=== PATIENT | male | born 1965 | race Caucasian/White ===

== ENCOUNTER → 2017-12-07 | Outpatient (REF) ==
[2017-12-07 17:11] LABS: THYROID STIMULATING HORMONE 1.98 uIU/mL (0.465-4.680)
[2017-12-07 18:10] LABS: PSA-TOTAL 2.17 ng/mL (0-4)
== END ==
LOC: ZLAB.WCH 16:05
PROVIDERS: Nurse Practitioner Family
DX: Z12.5 Encounter for screening for malignant neoplasm of prostate (principal)
CPT/HCPCS: G0103

== ENCOUNTER → 2017-12-14 | Outpatient (REF) | LOC: ZLAB.WCH 15:55 | DX: Z01.89 Encounter for other specified special examinations (principal) ==

== ENCOUNTER 2018-09-08 18:28 | Observation (INO) | payer BC ==
[2018-09-08] VITALS (9 sets, daily range): BP systolic 105–117; BP diastolic 62–84; PULSE 71–92; TEMP 98–98.3
[~2018-09-08] VITALS: Ht 175.3 cm; Wt 82.2 kg
[2018-09-08] MEDS ORDERED: CELEXA 20MG20 MG/TAB PO (19:14)
[2018-09-08] MEDS ORDERED: XANAX 0.5MG0.5 MG PO (19:15)
[2018-09-08] MEDS ORDERED: ZYRTEC5 MG PO (19:16)
[2018-09-08] MEDS ORDERED: MIRAPEX 0.0.125 MG/T PO (19:17)
--- NOTE | 2018-09-08 19:35 | NUR ---
Report from ARNULFO Pace. Patient was a direct admit from [facility] via personal vehicle. Admission B and assessment completed. Med-rec and allergies reviewed and entered. Patient is A&O x 4. VSS. Reports pain 4/10 to abdomen RLQ, denies needing any pain medication at this time. Pre-op checklist completed and on chart. and son are at bedside. Dr. Armas was just in to see patient and plan is for patient to go surgery this evening. IVF initiated per orders. Bed is in a low position with call light in reach.
--- NOTE | 2018-09-08 19:48 | NUR ---
Patient sent down to surgery with ARNULFO Harrison from PACU at this time.
--- NOTE | 2018-09-08 21:30 | NUR ---
Received patient from PACU at this time. Patient is drowsy, awakens to verbal stimuli. Post-op vitals initiated. Denies any pain at this time. Abdominal lap sites x 3 with swiftset. IVF infusing from PACU via gravity. Denies any concerns or needs at this time. Family is at bedside. Bed remains in a low position with call light in reach.
--- NOTE | 2018-09-08 22:55 | NUR ---
Patient is sitting up in bed visiting with family at bedside. Requesting a pain pill at this time as he reports he feels abdominal soreness and tugging at the incision sites, prn Gamaliel given along with an evening snack.
[2018-09-09 05:21] VITALS: BP 101/53; PULSE 61; TEMP 98
--- NOTE | 2018-09-09 05:51 | NUR ---
Patient has rested intermittently through the night. VSS. Reports minimal pain this morning, 1 tablet of [place] given last night. Abdominal lap sites x 3 with swiftset remain with edges well aproximated. Tolerating diet with no c/o nausea. Reoprts passing gas. Voiding with no difficulities. INT with good PO intake. has remained at bedside. Voices no concerns or needs this morning.
[2018-09-09 07:30] VITALS: BP 92/58; PULSE 65; TEMP 98.1
--- NOTE | 2018-09-09 08:07 | NUR ---
shift report received from ARNULFO Galvez
--- NOTE | 2018-09-09 08:20 | NUR ---
resting in bed, full assessment completed, see interventions for further info, breakfast is here
[2018-09-09] MEDS ORDERED: NORCO 325 MG-51 TAB PO (09:33)
[2018-09-09] MEDS ORDERED: LEVAQUIN 5500 MG/TA1 PO (09:33)
--- NOTE | 2018-09-09 09:50 | NUR ---
appears to be sleeping, awakened and states pain pill has helped his pain, is ready to go home, will get up and get dressed for discharge
--- NOTE | 2018-09-09 10:15 | NUR ---
discharge instructions given to patient and his , verbalizes understanding
--- NOTE | 2018-09-09 10:20 | NUR ---
discharged per WC
--- NOTE | 2018-09-09 10:26 | NUR ---
Initial visit; Patient and his thanked Event Marketing Intern for looking in on Bill and offering God's blessings. Patient states that his Electrical Continuity Inspector offered support and comfort for him and his earlier.
== END 2018-09-09 10:20 | disposition home or self-care (01) ==
LOC: JCC 18:28
PROVIDERS: ADMIT Surgery
DX: K35.80 Unspecified acute appendicitis (principal); F32.9 Major depressive disorder, single episode, unspecified
CPT/HCPCS: G0378; G0379; J1100; J1885; J2175; J2405; J2543; J2704; J7120

== ENCOUNTER 2020-09-09 10:53 | Inpatient (IN) | payer BC ==
[~2020-09-09] VITALS: Ht 175.3 cm; Wt 90.7 kg
[~2020-09-09 10:53] MED LIST: CELEXA 20MG20 MG/TAB PO; LEVAQUIN 5500 MG/TA1 PO; MIRAPEX 0.0.125 MG/T PO; NORCO 325 MG-51 TAB PO; XANAX 0.5MG0.5 MG PO; ZYRTEC5 MG PO
[2020-09-09] MEDS ORDERED: PREDNISONE20 MG PO (11:57)
[2020-09-09] MEDS ORDERED: ZOCOR 20MG20 MG PO (11:59)
[2020-09-09] MEDS ORDERED: DOXYCYCLINE 10100 MG PO (11:59)
[2020-09-09 12:00] LABS: INR 1.1 (0.8-3.0)
[2020-09-09] MEDS ORDERED: VITAMIND3 5000 PO (12:00)
[2020-09-09] MEDS ORDERED: ZYRTEC 10MG10 MG PO (12:01)
[2020-09-09 12:02] LABS: GRAN # 5.5 (1.4-6.5); GRAN % 76.5 % (42.2-75.2); HEMATOCRIT 42.2 % (42.0-52.0); HEMOGLOBIN 14.5 g/dl (13.5-18.0); LYMPH # 1.3 (1.2-3.4); LYMPH % 17.8 % (20.0-51.0); MEAN CELL VOLUME 91 fl (80.0-100.0); MEAN CORPUSCULAR HEMOGLOBIN 31 pg (27.0-31.0); MEAN CORPUSCULAR HGB CONC 34 g/dl (33.0-37.0); MEAN PLATELET VOLUME 10.5 fl (7.4-10.4); MONO # 0.4 (0.1-0.6); MONO % 5.4 % (1.7-9.3); PLATELET COUNT 167 K/mm3 (130-400); RED BLOOD COUNT 4.65 M/mm3 (4.20-5.60)
[2020-09-09 12:03] LABS: PARTIAL THROMBOPLASTIN TIME 21.4 SECONDS (26.0-37.0)
[2020-09-09 12:10] LABS: ALANINE AMINOTRANSFERASE 27 U/L (4-49); ALBUMIN 4.2 gm/dL (3.5-5.0); ALKALINE PHOSPHATASE 72 U/L (50-136); ANION GAP 9 mmol/L (7-16); AST,SGOT 27 U/L (15-37); BILIRUBIN,TOTAL 0.4 mg/dL (0.0-1.0); BLOOD UREA NITROGEN 22 mg/dL (9-20); CALCIUM 8.9 mg/dL (8.4-10.2); CARBON DIOXIDE 28 mmol/L (22-30); CHLORIDE 101 mmol/L (98-107); CREATININE, serum 1.06 (0.66-1.25); GLUCOSE 100 mg/dL (74-106); LIPASE 13 U/L (23-300); SODIUM 138 mmol/L (137-145); TOTAL PROTEIN 7.4 gm/dL (6.4-8.2)
[2020-09-09 12:23] LABS: TROPONIN-I < 0.012 ng/mL (0.000-0.035)
[2020-09-09 12:25] LABS: PROLACTIN 10.4 ng/mL (3.7-17.9)
--- NOTE | 2020-09-09 15:48 | NUR ---
PT IN ROOM, SATTING 85% WHEN BROUGHT UP FROM ER. GRADUALLY TURNED UP TO 10L HIGH FLOW NASAL CANNULA. NOW SATTING 92%. PT REPORTS BEING EXHAUSTED AND SLEEPING 18-20HOURS A DAY AT HOME. HELPED GET PERSONAL BELONGINGS WITHIN REACH FOR PT, PT AOX4 BUT DROWSY, WATER IN ROOM SHOWED HOW TO USE CALL LIGHT AND PHONE.
[2020-09-09] MEDS ORDERED: MUCINEX DM 30 M1 TE1 (15:59)
[2020-09-09 16:10] VITALS: BP 103/74; PULSE 70; TEMP 99.1
--- NOTE | 2020-09-09 18:03 | NUR ---
PT CURRENTLY AT 6L NC SATTING 90%. PT VERY DROWSY IN ROOM, URINAL AT BEDSIDE SO PT DOES NOT HAVE TO GET UP, MAINTENANCE FLUIDS HANGING, CALL LIGHT WITHIN REACH, PT AOX4, PT GAVE PERMISSION TO UPDATE ABOUT ANY HEALTH QUESTIONS/UPDATES. PT PLEASANT OVERALL, NO OTHER NEEDS AT THIS TIME.
[2020-09-09 21:45] VITALS: BP 107/67; PULSE 69; TEMP 97.8
--- NOTE | 2020-09-09 23:49 | NUR ---
individual denied pain and or discomfort. VSS No s/s of distress noted.
[2020-09-09 23:59] VITALS: BP 102/58; PULSE 66; TEMP 97.8
[2020-09-10] VITALS (460 sets, daily range): BP systolic 95–129; BP diastolic 58–79; PULSE 65–91; TEMP 98.3–100; O2SAT 83–100
[2020-09-10 05:45] LABS: ARTERIAL BLD GAS O2 SATURATION 92.6 % (92-100); ARTERIAL BLD GAS TCO2 CT 26.2; ARTERIAL BLOOD GAS BASE EXCESS 1.4 (-2-2); ARTERIAL BLOOD GAS HCO3 25.1 meq/L (22-26); ARTERIAL BLOOD GAS PCO2 36.6 mmHg (35-45); ARTERIAL BLOOD GAS PO2 61.8 mmHg (80-100); ARTERIAL BLOOD GAS pH 7.45 (7.35-7.45)
--- NOTE | 2020-09-10 06:36 | NUR ---
individual noted SOB and c/o chills. 02 @ 3-4L via HF, Sat in 80"s. Increased to 10 then 15L and could not get above 89-90%. Resp and ALP notified. Placed on bi-pap and will be transfered to ICU and CT.
--- NOTE | 2020-09-10 06:50 | NUR ---
received report, checked on pt, bipap on, pulse-ox showing 92%. called ct of stat chest ct for pe, RT notified of need to go down with RT assistance.
[2020-09-10 07:00] LABS: EOS % 0.1 % (0-4.0); GRAN # 6.1 (1.4-6.5); GRAN % 77.8 % (42.2-75.2); HEMATOCRIT 38.7 % (42.0-52.0); HEMOGLOBIN 13.4 g/dl (13.5-18.0); LYMPH # 1.3 (1.2-3.4); LYMPH % 16.6 % (20.0-51.0); MEAN CELL VOLUME 91 fl (80.0-100.0); MEAN CORPUSCULAR HEMOGLOBIN 32 pg (27.0-31.0); MEAN CORPUSCULAR HGB CONC 35 g/dl (33.0-37.0); MEAN PLATELET VOLUME 10.5 fl (7.4-10.4); MONO # 0.4 (0.1-0.6); MONO % 5.1 % (1.7-9.3); PLATELET COUNT 173 K/mm3 (130-400); RED BLOOD COUNT 4.24 M/mm3 (4.20-5.60); REDCELL DISTRIBUTION WIDTH-CV 13.1 % (11.5-14.5)
[2020-09-10 07:01] LABS: ALBUMIN 3.8 gm/dL (3.5-5.0); BILIRUBIN,TOTAL 0.5 mg/dL (0.0-1.0); CALCIUM 8.8 mg/dL (8.4-10.2); CREATININE, serum 0.94 (0.66-1.25); POTASSIUM 4.3 mmol/L (3.4-5.0); TOTAL PROTEIN 6.7 gm/dL (6.4-8.2)
--- NOTE | 2020-09-10 07:57 | NUR ---
PT TAKEN DOWN TO CT, TRANSFERRED TO ICU BED [address] REPORT GIVEN TO ARNULFO JC.
[2020-09-11] VITALS (706 sets, daily range): BP systolic 98–134; BP diastolic 63–81; PULSE 55–80; TEMP 98.3–99; O2SAT 75–100
[2020-09-11 05:42] LABS: GRAN # 5.9 (1.4-6.5); GRAN % 76.9 % (42.2-75.2); HEMOGLOBIN 12.3 g/dl (13.5-18.0); LYMPH # 1.3 (1.2-3.4); LYMPH % 16.4 % (20.0-51.0); MEAN CELL VOLUME 90 fl (80.0-100.0); MEAN CORPUSCULAR HEMOGLOBIN 31 pg (27.0-31.0); MEAN CORPUSCULAR HGB CONC 34 g/dl (33.0-37.0); MONO # 0.5 (0.1-0.6); PLATELET COUNT 153 K/mm3 (130-400); RED BLOOD COUNT 4.01 M/mm3 (4.20-5.60); REDCELL DISTRIBUTION WIDTH-CV 12.9 % (11.5-14.5)
[2020-09-11 05:47] LABS: ARTERIAL BLD GAS O2 SATURATION 96.8 % (92-100); ARTERIAL BLD GAS TCO2 CT 22.8; ARTERIAL BLOOD GAS BASE EXCESS -1.5 (-2-2); ARTERIAL BLOOD GAS HCO3 21.8 meq/L (22-26); ARTERIAL BLOOD GAS PCO2 32.4 mmHg (35-45); ARTERIAL BLOOD GAS PO2 88.3 mmHg (80-100); ARTERIAL BLOOD GAS pH 7.45 (7.35-7.45)
[2020-09-11 05:57] LABS: ALBUMIN 3.4 gm/dL (3.5-5.0); BILIRUBIN,TOTAL 0.4 mg/dL (0.0-1.0); CALCIUM 8.2 mg/dL (8.4-10.2); CREATININE, serum 0.89 (0.66-1.25); TOTAL PROTEIN 6.3 gm/dL (6.4-8.2)
--- NOTE | 2020-09-11 11:50 | NUR ---
Wel[employer] attempted to contact patient by personal phone with no answer. SW then contacted patient's , Lorelei (ph#[phone]) to discuss discharge planning. Lorelei advised that she and patient live in [place] and patient is employed by [employer]. Patient sees LYNDA Tabares in [place] for primary care and obtains medications from [email or web address] with no difficulties. Patient uses a CPAP and no other DME. Patient is normally independent with ADLS. Lorelei advised patient has DPOA-HC but SW did not locate copy in EMR. RACHID requested Lorelei fax over a copy to the ICU and Lorelei states she will try to get that over today. RACHID will continue to follow.
[2020-09-12] VITALS (612 sets, daily range): BP systolic 113–132; BP diastolic 71–89; PULSE 57–70; TEMP 97.6–98.3; O2SAT 73–100
--- NOTE | 2020-09-12 02:26 | NUR ---
PT resting well. No desaturations noted on the BiPap. Patient would occasionally desat on HFNC when coughing and eating. PT noted SOA with activity but was able to pace activities and catch up on his breathing. Will continue to monitor and educate.
[2020-09-12 05:52] LABS: BASO % 0.1 % (0.0-2.0); GRAN # 5.2 (1.4-6.5); GRAN % 74.5 % (42.2-75.2); HEMOGLOBIN 11.9 g/dl (13.5-18.0); LYMPH # 1.3 (1.2-3.4); LYMPH % 17.9 % (20.0-51.0); MEAN CELL VOLUME 89 fl (80.0-100.0); MEAN CORPUSCULAR HEMOGLOBIN 31 pg (27.0-31.0); MEAN CORPUSCULAR HGB CONC 34 g/dl (33.0-37.0); MONO # 0.5 (0.1-0.6); MONO % 6.9 % (1.7-9.3); PLATELET COUNT 181 K/mm3 (130-400); REDCELL DISTRIBUTION WIDTH-CV 12.7 % (11.5-14.5)
[2020-09-12 05:55] LABS: HEMATOCRIT 34.8 % (42.0-52.0)
[2020-09-12 06:06] LABS: ALBUMIN 3.2 gm/dL (3.5-5.0); BILIRUBIN,TOTAL 0.4 mg/dL (0.0-1.0); CALCIUM 8.3 mg/dL (8.4-10.2); CREATININE, serum 0.83 (0.66-1.25); POTASSIUM 3.8 mmol/L (3.4-5.0); TOTAL PROTEIN 5.9 gm/dL (6.4-8.2)
--- NOTE | 2020-09-12 13:47 | NUR ---
Dr. Valdes called. updates given
--- NOTE | 2020-09-12 14:38 | NUR ---
Reformatory Attendant contacted patient's , Lorelei to follow up on DPOA-HC documents. Lorelei states she is in isolation herself for COVID and faxing the paperwork is not a priority for her right now. RACHID inquired if these documents were drawn up at an employee benefits attorney's office. Lorelei asked SW why it was so important to have a copy. RACHID advised Lorelei that if patient has designated someone as DPOA-HC we are required to have a copy so that if the occasion arises that patient is unable to make his own medical decisions, we have documentation of who is the legal decision maker. Lorelei states she would be the decision maker and that she is not comfortable providing the name of the employee benefits attorney and did not want SW to call to request a copy. RACHID will continue to follow.
--- NOTE | 2020-09-12 16:14 | NUR ---
ED screener called and advised that patient's daughter dropped of a copy of patient's DPOA- paperwork. Patient's also left SW a message and said she made a copy and would have daughter bring it in. RACHID placed copy on patient's chart. Lorelei is DPOA-.
--- NOTE | 2020-09-12 23:00 | NUR ---
PT SLEEPING WELL ON AIRVO WITH SATURATIONS IN THE HIGH 90'S. DISCUSSED WITH PT TO SLEEP ON STOMACH. THIS WOULD BE EASIER TO DO WITH THE AIRVO ON INSTEAD OF THE BIPAP WITH THE MASK. NO DISTRESS NOTED AT THIS TIME. WILL CONTINUE TO WATCH AND ASSESS PT AND PLACE ON BIPAP IF SATURATIONS DROP. HOWEVER AT THIS TIME IT IS NOT NEEDED.
[2020-09-13] VITALS (344 sets, daily range): BP systolic 102–122; BP diastolic 60–84; PULSE 49–78; TEMP 97.6–97.8; O2SAT 86–100
[2020-09-13 05:23] LABS: BASO % 0.1 % (0.0-2.0); EOS % 0.1 % (0-4.0); GRAN # 5.7 (1.4-6.5); HEMOGLOBIN 12.6 g/dl (13.5-18.0); LYMPH # 1.3 (1.2-3.4); LYMPH % 16.8 % (20.0-51.0); MEAN CELL VOLUME 89 fl (80.0-100.0); MEAN CORPUSCULAR HEMOGLOBIN 31 pg (27.0-31.0); MEAN CORPUSCULAR HGB CONC 35 g/dl (33.0-37.0); MEAN PLATELET VOLUME 9.9 fl (7.4-10.4); MONO # 0.5 (0.1-0.6); MONO % 6.9 % (1.7-9.3); PLATELET COUNT 207 K/mm3 (130-400); RED BLOOD COUNT 4.04 M/mm3 (4.20-5.60); REDCELL DISTRIBUTION WIDTH-CV 12.5 % (11.5-14.5)
[2020-09-13 05:32] LABS: CALCIUM 8.4 mg/dL (8.4-10.2); CREATININE, serum 0.83 (0.66-1.25); POTASSIUM 3.9 mmol/L (3.4-5.0)
--- NOTE | 2020-09-13 14:12 | NUR ---
Patient to transfer to the floor. SW collaborated with Hospitalist and requested PT/OT orders. SW will continue to follow.
--- NOTE | 2020-09-13 16:30 | NUR ---
Pt transferred to 303 from ICU via WC with O2 via Non-rebreather mask, sats 92% upon change back to Airvo when in room. Pt tolerated transfer well AEB no signs of dyspnea. PICC line to right upper arm with Abx infusion restarted, no s/s of complications. POC reviewed with pt. No needs reported. Call light in reach.
--- NOTE | 2020-09-13 18:15 | NUR ---
IV abx complete. Line disconnected and flushed with NS. Pt up to bathroom, Airvo does reach to bathroom without any complications. Pt denies any further needs. Call light in reach.
--- NOTE | 2020-09-13 19:11 | NUR ---
Report given to ARNULFO Byrne.
--- NOTE | 2020-09-13 20:00 | NUR ---
Assessment complete. Patient is wearing airvo at 50 liters and appears comfortable with no SOA. He has no complaints of pain. Lungs sound clear. PRN robitussin is adminstered per patient request. No new concerns, call light in reach, will continue to monitor.
[2020-09-14 01:29] VITALS: BP 110/60; PULSE 60; TEMP 98
[2020-09-14 03:06] VITALS: BP 110/70; PULSE 60; TEMP 97.8
--- NOTE | 2020-09-14 04:25 | NUR ---
Patient has slept throughout the night with no complaints. He has worn 50 liters airvo all night with no complications. Call light in reach, will continue to monitor.
[2020-09-14 07:11] LABS: HEMOGLOBIN 12.8 g/dl (13.5-18.0); MEAN CELL VOLUME 90 fl (80.0-100.0); MEAN CORPUSCULAR HEMOGLOBIN 31 pg (27.0-31.0); MEAN CORPUSCULAR HGB CONC 35 g/dl (33.0-37.0); MEAN PLATELET VOLUME 10.1 fl (7.4-10.4); PLATELET COUNT 233 K/mm3 (130-400); RED BLOOD COUNT 4.12 M/mm3 (4.20-5.60); REDCELL DISTRIBUTION WIDTH-CV 12.6 % (11.5-14.5)
[2020-09-14 07:16] LABS: ALBUMIN 3.3 gm/dL (3.5-5.0); BILIRUBIN,TOTAL 0.5 mg/dL (0.0-1.0); CALCIUM 8.7 mg/dL (8.4-10.2); CREATININE, serum 0.81 (0.66-1.25); POTASSIUM 3.6 mmol/L (3.4-5.0); TOTAL PROTEIN 6.2 gm/dL (6.4-8.2)
[2020-09-14 07:24] LABS: HEMATOCRIT 36.9 % (42.0-52.0)
[2020-09-14 08:19] LABS: BAND 1 % (0-10); EOSINOPHIL 1 % (0-4); NEUTROPHILS 73 % (42.0-75.2); PLATELET ESTIMATE NORMAL (NORMAL)
[2020-09-14 08:20] LABS: LYMPHOCYTE 17 % (20.0-51.0)
[2020-09-14 08:56] VITALS: BP 124/62; PULSE 63; TEMP 97.9
--- NOTE | 2020-09-14 11:09 | NUR ---
MORNING MEDS GIVEN. PT AOX4. steady independent ambulation albeit winded with activity. therapy in session at this time. denied pain. reports soft formed BM this morning. denies chest pain, N/V, ROLLINS or diarrhea. reports occasional pain to chest cavity due to strong cough and PNA. called and updated. remains on Airvo 50L. lungs diminished bases R>L. HRRR. call light within reach. no other needs at this time
[2020-09-14 12:22] VITALS: BP 108/74; PULSE 61; TEMP 97.8
--- NOTE | 2020-09-14 15:45 | NUR ---
Oil Rig Driller staffed with Hospitalist regarding discharge disposition. Hospitalist is recommending [facility]. SW contacted the patient's Lorelei to discuss this recommendation. Lorelei asked that the nurse or physician provide and update to her. Lorelei was agreeable to sending referrals to LTACH. RACHID faxed referrals to [facility] and to [facility]. RACHID collaborated the above information with the team.
[2020-09-14 16:12] VITALS: BP 101/658; PULSE 69; TEMP 97.7
[2020-09-14 19:14] VITALS: BP 118/64; PULSE 66; TEMP 97.4
[2020-09-15] VITALS (7 sets, daily range): BP systolic 97–123; BP diastolic 52–81; PULSE 52–83; TEMP 97.6–98.5
--- NOTE | 2020-09-15 04:39 | NUR ---
PT HAS HAD AN UNEVENTFUL NIGHT. RESTED WELL, NO C/O PAIN OR DISCOMFORT. NO CONCERNS.
[2020-09-15 07:07] LABS: BASO % 0.1 % (0.0-2.0); EOS % 0.3 % (0-4.0); GRAN % 75.8 % (42.2-75.2); HEMOGLOBIN 12.3 g/dl (13.5-18.0); LYMPH # 1.5 (1.2-3.4); LYMPH % 16.3 % (20.0-51.0); MEAN CELL VOLUME 91 fl (80.0-100.0); MEAN CORPUSCULAR HEMOGLOBIN 31 pg (27.0-31.0); MEAN CORPUSCULAR HGB CONC 35 g/dl (33.0-37.0); MEAN PLATELET VOLUME 10.1 fl (7.4-10.4); MONO # 0.6 (0.1-0.6); MONO % 6.4 % (1.7-9.3); PLATELET COUNT 216 K/mm3 (130-400); RED BLOOD COUNT 3.93 M/mm3 (4.20-5.60); REDCELL DISTRIBUTION WIDTH-CV 12.6 % (11.5-14.5)
[2020-09-15 07:09] LABS: HEMATOCRIT 35.6 % (42.0-52.0)
[2020-09-15 07:35] LABS: CALCIUM 8.5 mg/dL (8.4-10.2); CREATININE, serum 0.81 (0.66-1.25); POTASSIUM 3.9 mmol/L (3.4-5.0)
--- NOTE | 2020-09-15 07:44 | NUR ---
sHIFT REPORT RECEIVED. PT resting in bed. denied any needs at this time
--- NOTE | 2020-09-15 10:07 | NUR ---
MORNING MEDS GIVEN. PT AOX4. denies pain. reports dry cough. prn guafenesin given. PICC to RUE double lumen easy flush and draw back. remains on Airvo. pt reports feeling better. lung sounds diminished with some clear. no edema. HRRR. no new concerns
--- NOTE | 2020-09-15 15:56 | NUR ---
pt's Lorelei called and updated about pt's progress and plan of care. She stated she discussed with case management about possible discharge to LTAC/SNF for oxygen needs in near future. informed about plan to initiate Bipap at night and Airvo in AM and attempts to lower supplemental oxygen needs. She stated she is aware of chest Xray results based on pt's conversation with Dr García. Multiple questions answered. PT AOX4 and able to make needs known.
[2020-09-16 03:39] VITALS: BP 98/60; PULSE 57; TEMP 98.2
--- NOTE | 2020-09-16 08:34 | NUR ---
SHIFT report received and pt seen shorlty after. denies pain. resting in bed awake. reports feeling phlegm loosen but cough remains dry. Airvo running. No other concerns at this time
[2020-09-16 08:49] VITALS: BP 103/58; PULSE 63; TEMP 98.5
--- NOTE | 2020-09-16 08:56 | NUR ---
MORNING MEDS GIVEN. PT AOX4, denies pain. Airvo @ 50L 86%. VSS axs charted. reports regular daily BMs. denies nausea. ate 100% breakfast. no new concerns. lungs diminished bases with upper lobes clear. call light within reach
[2020-09-16 09:20] LABS: BASO % 0.1 % (0.0-2.0); EOS # 0.1 (0.0-0.7); EOS % 0.7 % (0-4.0); GRAN # 9.2 (1.4-6.5); GRAN % 77.6 % (42.2-75.2); HEMATOCRIT 38.2 % (42.0-52.0); HEMOGLOBIN 13.2 g/dl (13.5-18.0); LYMPH # 1.8 (1.2-3.4); LYMPH % 15.3 % (20.0-51.0); MEAN CELL VOLUME 90 fl (80.0-100.0); MEAN CORPUSCULAR HEMOGLOBIN 31 pg (27.0-31.0); MEAN CORPUSCULAR HGB CONC 35 g/dl (33.0-37.0); MEAN PLATELET VOLUME 9.5 fl (7.4-10.4); MONO # 0.6 (0.1-0.6); PLATELET COUNT 241 K/mm3 (130-400); RED BLOOD COUNT 4.27 M/mm3 (4.20-5.60); REDCELL DISTRIBUTION WIDTH-CV 12.8 % (11.5-14.5)
[2020-09-16 09:30] LABS: ALBUMIN 3.6 gm/dL (3.5-5.0); BILIRUBIN,TOTAL 0.6 mg/dL (0.0-1.0); CREATININE, serum 0.98 (0.66-1.25); POTASSIUM 3.8 mmol/L (3.4-5.0); TOTAL PROTEIN 6.5 gm/dL (6.4-8.2)
[2020-09-16 11:09] VITALS: BP 110/62; PULSE 67; TEMP 97.7
[2020-09-16 16:00] VITALS: BP 106/75; PULSE 79; TEMP 98.1
[2020-09-16 19:30] VITALS: BP 110/70; PULSE 68; TEMP 98.3
[2020-09-16 23:44] VITALS: BP 110/76; PULSE 53; TEMP 97.7
[2020-09-17 04:40] VITALS: BP 102/70; PULSE 51; TEMP 97.5
[2020-09-17 07:43] VITALS: BP 103/69; PULSE 58; TEMP 98.2
--- NOTE | 2020-09-17 07:43 | NUR ---
SHIFT REPORT recveived. PT AOX4. resting in chair. denies pain. RT in room and titrated pt to 45L 66% airvo. no new concerns at this time
--- NOTE | 2020-09-17 09:41 | NUR ---
[employer] faxed updates to Merritt with [facility].
[2020-09-17 12:46] VITALS: BP 115/73; PULSE 61; TEMP 98.2
[2020-09-17 16:30] VITALS: BP 117/73; PULSE 67; TEMP 97.6
--- NOTE | 2020-09-17 16:53 | NUR ---
PT REPORTS FEELING MILDLY LABORED IN BREATHING. able to tolerate. airvo titrated to 45L 50%. O2 sat 96%. pt denies SOB even with activity.
[2020-09-17 20:12] VITALS: BP 113/72; PULSE 67; TEMP 97.8
[2020-09-18 00:15] VITALS: BP 116/70; PULSE 68; TEMP 97.7
[2020-09-18 05:28] VITALS: BP 101/69; PULSE 61; TEMP 97.9
[2020-09-18 10:03] VITALS: BP 115/78; PULSE 76; TEMP 98.1
--- NOTE | 2020-09-18 10:23 | NUR ---
The patient has is not down to 10L of oxygen and he is ready for discharge. Merritt with [facility] reports the patient is next on the list and once a bed is available he will be able to be transferred. RACHID contacted Stephani BELL with [facility]. RACHID left her a message regarding the above information.
--- NOTE | 2020-09-18 10:41 | NUR ---
Assessment completed, alert/oriented, vital sign stable, denies pain or discomfort, reports overall feeling better, lungs diminished with some LLL fine crackles, Airvo setting decreased to 40/52 and will attempt to put on nasal cannula later today, heart RRR/distal pulses are palpable, he is sitting up in his chair eating breakfast and denies otehr needs at thistime
[2020-09-18 16:00] VITALS: BP 122/82; PULSE 66; TEMP 98.2
--- NOTE | 2020-09-18 19:30 | NUR ---
Patient assessed at this time. Alert and oriented x 4, and able to make needs known. Denies having pain and discomfort at this time. Double lumen PICC to RUE. Denies SOB and dyspnea. On oxygen at 8 L/min via high flow NC. LS CTA in upper lobes, diminished in lower. Respirations even and unlabored. HRR. Telemetry in place. Capillary refill less than 3 seconds. Non-tenting skin turgor. BSAx4. Abdomen soft and non-tender. No edema. Voices no questions, needs, or concerns at this time. Resting in bed with call light within reach.
[2020-09-18 19:49] VITALS: BP 118/73; PULSE 71; TEMP 97.9
--- NOTE | 2020-09-18 20:20 | NUR ---
Patient given PRN Xanax as requested for anxiety at this time.
[2020-09-19 11:58] LABS: CALCIUM 8.8 mg/dL (8.4-10.2); CREATININE, serum 0.85 (0.66-1.25); POTASSIUM 4.1 mmol/L (3.4-5.0)
[2020-09-19 11:59] VITALS: BP 134/74; PULSE 42; TEMP 98.3
[2020-09-19 12:33] LABS: BASO % 0.2 % (0.0-2.0); EOS # 0.1 (0.0-0.7); EOS % 0.5 % (0-4.0); GRAN # 8.4 (1.4-6.5); GRAN % 71.1 % (42.2-75.2); HEMATOCRIT 36.5 % (42.0-52.0); HEMOGLOBIN 12.5 g/dl (13.5-18.0); LYMPH # 2.4 (1.2-3.4); LYMPH % 20.7 % (20.0-51.0); MEAN CELL VOLUME 91 fl (80.0-100.0); MEAN CORPUSCULAR HEMOGLOBIN 31 pg (27.0-31.0); MEAN CORPUSCULAR HGB CONC 34 g/dl (33.0-37.0); MEAN PLATELET VOLUME 10.4 fl (7.4-10.4); MONO # 0.8 (0.1-0.6); MONO % 6.4 % (1.7-9.3); PLATELET COUNT 202 K/mm3 (130-400); RED BLOOD COUNT 4.03 M/mm3 (4.20-5.60); REDCELL DISTRIBUTION WIDTH-CV 12.9 % (11.5-14.5)
--- NOTE | 2020-09-19 15:29 | NUR ---
The patient is now on 3L of oxygen and independent in his room. SW attempted to contact the patient via room phone to follow up with the discharge plan, no answer. RACHID contacted the patient's Lorelei to revisit the discharge plan. The plan is for the patient to return home. If the patient will be needing oxygen, [employer] is the company Lorelei would like to use. RACHID staffed with the patient's nurse regarding the patient's plans for discharge. Nurse reports the patient plans to return home when able.
--- NOTE | 2020-09-19 15:53 | NUR ---
PATIENT ON ROOM AIR SPO2 89% WALKING, SUGGEST EX OX IN AM. PATIENT BACK ON 2LPM FOR TONIGHT.
[2020-09-19 16:30] VITALS: BP 125/82; PULSE 73
--- NOTE | 2020-09-19 19:35 | NUR ---
Patient assessed at this time. Alert and oriented x 4, and able to make needs known. Denies having pain and discomfort at this time. Double lumen PICC to RUE flushed. Site without redness, warmth, swelling, and pain. Dressing CDI. Denies having SOB and dyspnea. On oxygen at 2 L/min via NC. LS CTA. Respirations even and unlabored. HRR. Telemetry in place. Capillary refill less than 3 seconds. Non-tenting skin turgor. BSAx4. Abdomen soft and non-tender. No edema. Voices no questions, needs, or concerns at this time. Resting in recliner with call light within reach.
[2020-09-19 20:12] VITALS: BP 109/81; PULSE 77; TEMP 97.8
[2020-09-19 23:22] VITALS: BP 97/71; PULSE 116; TEMP 97.7
[2020-09-20 03:55] VITALS: BP 106/67; PULSE 62; TEMP 97.4
--- NOTE | 2020-09-20 04:12 | NUR ---
Patient given PRN APAP as requested for headache at this time. Voices no further questions, needs, or concerns at this time. Resting in bed with call light within reach.
--- NOTE | 2020-09-20 05:09 | NUR ---
Patient has been resting in bed with call light within reach. Continues on oxygen at 2 L/min via NC. Denies having SOB and dyspnea. Received PRN APAP once for headache this shift. Voices no further questions, needs, or concerns at this time.
[2020-09-20 07:36] LABS: BASO % 0.2 % (0.0-2.0); EOS % 0.2 % (0-4.0); GRAN # 9.6 (1.4-6.5); GRAN % 72.4 % (42.2-75.2); HEMATOCRIT 38.1 % (42.0-52.0); HEMOGLOBIN 13.3 g/dl (13.5-18.0); LYMPH # 2.8 (1.2-3.4); LYMPH % 21.1 % (20.0-51.0); MEAN CELL VOLUME 90 fl (80.0-100.0); MEAN CORPUSCULAR HEMOGLOBIN 31 pg (27.0-31.0); MEAN CORPUSCULAR HGB CONC 35 g/dl (33.0-37.0); MEAN PLATELET VOLUME 10.6 fl (7.4-10.4); MONO # 0.7 (0.1-0.6); MONO % 5.3 % (1.7-9.3); PLATELET COUNT 210 K/mm3 (130-400); RED BLOOD COUNT 4.23 M/mm3 (4.20-5.60)
[2020-09-20 07:40] LABS: CALCIUM 9.2 mg/dL (8.4-10.2); CREATININE, serum 0.93 (0.66-1.25); POTASSIUM 4.2 mmol/L (3.4-5.0)
[2020-09-20 08:03] VITALS: BP 122/77; PULSE 68; TEMP 97.7
--- NOTE | 2020-09-20 08:15 | NUR ---
Patient sitting up in bed watching TV. A&Ox4. VSS 2L NC O2. No reported SOB. IV CDI. Patient states that he is feeling better and is hoping to go home today. No further needs expressed from the patient. Call light within reach
[2020-09-20] MEDS ORDERED: PROAIR HFA0.09 MG/AC IH (10:42)
[2020-09-20] MEDS ORDERED: OXYGEN NASAL.CANN (10:43)
--- NOTE | 2020-09-20 11:06 | NUR ---
The patient is to discharge home today, 09/20 with family support. The patient qualified for oxygen. RACHID faxed order to [employer]. Carlos from [employer] states there will be a co-pay of around $385 a month. RACHID contacted the patient and regarding co-pay. They were agreeable. Delivery will be in-between 12 and 1 this day. RACHID collaborated the above information with the patient's nurse. No other needs.
--- NOTE | 2020-09-20 12:52 | NUR ---
Discharge paperwork reviewed with the patient. Patient verbalized an understanding to follow doctors orders. Portable oxygen tank with the patient. No further needs expressed from the patient. Patient independent in room. PICC line removed by ARNULFO Ibarra. Patient waiting on ride
--- NOTE | 2020-09-20 13:00 | NUR ---
Patient taken by wheelchair to admissions by wheelchair. Nurse spoke to the and patient over speaker phone. Personal belongings and discharge paperwork with the patient. No further needs expressed from the patient
== END 2020-09-20 13:20 | disposition home health service (06) | DRG 177 ==
LOC: COL.ER 10:53 → MEDICAL 13:58 → PEDS 13:58 → COL.ER 13:58 → ICU 13:58 → MEDICAL 09-10 08:15 → ICU 09-10 08:15 → PEDS 09-13 17:35 → ICU 09-13 17:35 → PEDS 09-13 23:00
PROVIDERS: Emergency Medicine; Internal Medicine Pulmonary Disease; Nurse Practitioner Family; Physician Assistant; Student in an Organized Health Care Education/Training Program
PROC: XW033E5 Introduction of Remdesivir Anti-infective into Peripheral Vein, Percutaneous Approach, New Technology Group 5 (ICD-10-PCS; 2020-09-09)
PROC: XW14325 Transfusion of Convalescent Plasma (Nonautologous) into Central Vein, Percutaneous Approach, New Technology Group 5 (ICD-10-PCS; 2020-09-09)
PROC: 02HV33Z Insertion of Infusion Device into Superior Vena Cava, Percutaneous Approach (ICD-10-PCS; principal; 2020-09-10)
DX: U07.1 COVID-19 (principal); J96.01 Acute respiratory failure with hypoxia; J12.82 Pneumonia due to coronavirus disease 2019; E87.2 Acidosis; E78.5 Hyperlipidemia, unspecified; G25.81 Restless legs syndrome; F41.9 Anxiety disorder, unspecified; F32.9 Major depressive disorder, single episode, unspecified; G47.33 Obstructive sleep apnea (adult) (pediatric); Z90.89 Acquired absence of other organs
CPT/HCPCS: 99222-AI; 99231-AI; 99232-AI; 99233-AI; 99239; C1751; J1650; J1956; J7030; J7050; J7120; J8540; Q9967

== ENCOUNTER → 2022-12-25 | Outpatient (CLI) | payer BC ==
[~2022-12-25] MED LIST changes: +DOXYCYCLINE 10100 MG PO; +MUCINEX DM 30 M1 TE1; +OXYGEN NASAL.CANN; +PREDNISONE20 MG PO; +PROAIR HFA0.09 MG/AC IH; +VITAMIND3 5000 PO; +ZOCOR 20MG20 MG PO; +ZYRTEC 10MG10 MG PO
== END ==
LOC: COL.RAD 12:36
DX: M43.17 Spondylolisthesis, lumbosacral region (principal); M47.817 Spondylosis without myelopathy or radiculopathy, lumbosacral region

== ENCOUNTER → 2024-08-01 | Outpatient (CLI) | payer BC | LOC: MHCPAIN 11:08 | DX: M43.17 Spondylolisthesis, lumbosacral region (principal); M51.369 Other intervertebral disc degeneration, lumbar region without mention of lumbar back pain or lower extremity pain; M54.16 Radiculopathy, lumbar region; M47.816 Spondylosis without myelopathy or radiculopathy, lumbar region | CPT/HCPCS: G0463 ==